=== PATIENT | female | born 1995 | race Hispanic/Latino ===

== ENCOUNTER 2018-01-16 22:00 | Emergency (ER) | payer BC ==
[~2018-01-16] VITALS: Ht 162.6 cm; Wt 77.1 kg
--- OUTSIDE RECORDS SUMMARY | 2018-01-16 22:03 | XMS REPORT | Clinical Summary ---
Author Author [facility] Organization [facility] Address Unknown Phone Unavailable Care Team Providers [employer] Architect Name Role Phone Asked, Pcp PCP Unavailable Allergies No Known Allergies Current Medications Prescription Sig. Disp. Refills Start End Date Status Date Take 1 tablet by mouth Active vit,[id number] 29 daily. mg iron- 1 mg tablet per tablet acetaminophen-codeine Take 1 tablet by mouth 40 tablet 0 03/25/20 (TYLENOL WITH CODEINE #3) every 6 (six) hours as 17 17 300-30 mg per tablet needed for moderate pain for up to 13 days. Active Problems Problem Noted Date S/P repeat low transverse 03/23/2017 Encounters Date Type Specialty Care Team Description 03/23/2017 Hospital Obstetrics and Gynecology Og Babcock MD - Encounter 03/25/2017 03/23/2017 Anesthesia Obstetrics and Gynecology Mikhail Beltran MD Event 03/23/2017 Procedure Pass Obstetrics and Gynecology 03/23/2017 Procedure Pass Obstetrics and Gynecology 03/23/2017 Surgery Obstetrics and Gynecology Og Babcock MD DELIVERY, REPEAT [[id number]] after 01/15/2017 Immunizations Name Dates Previously Given Next Due Tdap 03/25/2017 Family History Medical History Relation Name Comments Eclampsia Mother labor Mother Hypertension Paternal Grandfather Diabetes Paternal Grandmother Hypertension Paternal Grandmother Relation Name Status Comments Mother Paternal Grandfather Paternal Grandmother Social History Tobacco Use Types Packs/Day Years Used Date Never Smoker Tobacco Cessation: Counseling Given: No Sex Assigned at Date Recorded Not on file Last Filed Vital Signs Vital Sign Reading Time Taken Blood Pressure 110/59 03/25/2017 7:47 AM CDT Pulse 67 03/25/2017 7:47 AM CDT Temperature 36.3 C (97.4 F) 03/25/2017 7:47 AM CDT Respiratory Rate 18 03/25/2017 7:47 AM CDT Oxygen Saturation 96% 03/23/2017 10:17 PM CDT Inhaled Oxygen - - Concentration Weight - - Height 160 cm (5' 3") 03/23/2017 12:26 PM CDT Body Mass Index - - Plan of Treatment Not on file Procedures Procedure Name Priority Date/Time Associated Diagnosis Comments ANESTHESIA SPINAL BLOCK Routine 03/23/2017 5:26 PM CDT Procedure Note - Magaly Guillaume - 03/23/2017 5:25 PM CDT Spinal Block Performed by: MIKHAIL BELTRAN Authorized by: MIKHAIL BELTRAN Patient Location: OR Start Time: 03/23/2017 5:15 PM End Time: 03/23/2017 5:20 PM Reason for Block: primary anesthetic Staff: Anesthesio sandeept: MIKHAIL BELTRAN Performed by: Anesthesio moshe patient identified , IV checked, site and side verified, risks and benefits discussed, procedure verified, surgical consent complete, patient position confirmed, monitors and equipment checked and pre-op evaluation complete Spinal Block: Patient Position: Sitting Prep: Betadine Monitoring : Blood pressure monitoring , continuous pulse oximetry and heart rate Approach: Midline Interspace : L3-4 Injection Technique: Single injection Needle: Needle Type: Pencil-tip Needle Gauge: 25 G Catheter Type: Closed end Assessment : Coagulatio n status: Coagulatio n status verified Block assessment : No apparent complicati ons Post procedure: Patient returned to supine position with left lateral displaceme nt Notes: Marcaine 12 mg with 0.25 mg duramorph DELIVERY, REPEAT 03/23/2017 4:30 PM CDT after 01/15/2017 Results * CBC with platelet and differential (03/24/2017 3:50 AM) Only the most recent of 2 results within the time period is included. Component Value Ref Range WBC 14.60 (H) 4.50 - 11.00 k/uL RBC 3.40 (L) 4.20 - 5.50 m/uL HGB 10.1 (L) 12.0 - 16.0 g/dL HCT 30.7 (L) 37.0 - 47.0 % MCV 90.3 82.0 - 100.0 fL MCH 29.7 27.0 - 34.0 pg MCHC 32.9 31.0 - 37.0 g/dL RDW - SD 47.5 37.0 - 55.0 fL MPV 10.9 8.8 - 13.2 fL Platelet count 172 150 - 400 k/uL Nucleated RBC 0.00 /100 WBC Neutrophils 74.1 (H) 39.0 - 69.0 % Lymphocytes 17.5 (L) 25.0 - 45.0 % Monocytes 7.0 0.0 - 10.0 % Eosinophils 0.5 0.0 - 5.0 % Basophils 0.2 0.0 - 1.0 % Immature granulocytes 0.7Comment: "Immature granulocytes" 0.0 - 1.0 % (promyelocytes, myelocytes, metamyelocytes) Specimen Performing Laboratory Blood [facility] DEPARTMENT OF PATHOLOGY AND GENOMIC [facility] [id number] [place] [address] [place] [address] * Syphilis treponemal IgG (03/23/2017 1:44 PM) Component Value Ref Range Syphilis treponemal IgG Non-reactiveComment: Non-reactive: No serological Non-reactive evidence of Syphilis infection Specimen Performing Laboratory Serum [facility] DEPARTMENT OF PATHOLOGY AND GENOMIC MEDICINE [address] [place] [id number] * HIV 1, 2 antibody (03/23/2017 1:44 PM) Only the most recent of 2 results within the time period is included. Component Value Ref Range HIV 1, 2 antibody Nonreactive Non-reactive Comment: Starting from December 29 2015, 4th generation HIV screening and confirmation assays are in use at [facility], consistent with the CDC-recommended algorithm. The screening test detects antibodies to HIV-1, HIV-2 and the p24 antigen. Positive screening results will be automatically reflexed to a HIV-1/HIV-2 differentiation assay. Indeterminant HIV-1 results will be further automatically reflexed to a nucleic acid test for detection of acute infection. Western blot will no longer be performed as a confirmation test. For a quick reference guide on the testing algorithm, please refer to: http://stacks.cdc.gov/view/cdc/39462. Specimen Performing Laboratory Blood [facility] DEPARTMENT OF PATHOLOGY AND GENOMIC [facility] [id number] [place] [address] [place] [address] * Hepatitis B surface antigen (03/23/2017 1:44 PM) Only the most recent of 2 results within the time period is included. Component Value Ref Range Hepatitis B surface Ag Nonreactive Non-reactive Specimen Performing Laboratory Blood [facility] DEPARTMENT OF PATHOLOGY AND GENOMIC MEDICINE [address] [place] [address] * Type and screen (03/23/2017 1:44 PM) Component Value Ref Range ABO grouping A Rh type POS Antibody screen NEG Specimen Performing Laboratory Blood [facility] DEPARTMENT OF PATHOLOGY AND GENOMIC MEDICINE [address] [place] [address] * Amnisure (03/23/2017 12:23 PM) Component Value Ref Range Amnisure, POC POSITIVE Negative Specimen Performing Laboratory Amniotic fluid [facility] DEPARTMENT OF PATHOLOGY AND GENOMIC [facility] [address] [place] [address] * RPR titer with reflex to confirmation (03/06/2017) Component Value Ref Range RPR (dx) w/refl titer and negative confirmatory testing Specimen Performing Laboratory Blood [facility]TER[facility] NON-INTERFACED * Rubella Ab IgM (03/06/2017) Component Value Ref Range Rubella IgM antibody Immune Specimen Performing Laboratory Blood EXTERNAL LAB NON-INTERFACED after 01/15/2017 Insurance Payer Benefit Subscriber ID Type Phone Address Plan / Group Move Loot [facility] xxxxxxxxx [facility]
[2018-01-16] MEDS ORDERED: BROMFED DM COU118 ML PO (22:57)
[2018-01-16] MEDS ORDERED: ZOFRAN ODT4 MG SL (22:57)
== END 2018-01-16 23:03 | disposition home or self-care (01) ==
LOC: FSED 22:00
DX: J02.9 Acute pharyngitis, unspecified (principal); B34.9 Viral infection, unspecified
CPT/HCPCS: 99282